=== PATIENT | male | born 1935 | race Caucasian/White ===

== ENCOUNTER 2024-06-14 21:50 | Emergency (ER) | payer MEDICARE ==
[~2024-06-14] VITALS: Ht 175.3 cm; Wt 83.9 kg
[2024-06-14 22:14] VITALS: BP 162/82; PULSE 70; RESP 16; TEMP 97.8; O2SAT 98
--- NOTE | 2024-06-14 22:27 | ERN ---
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 Apparently patient accidentally scraped his right arm against the wall and sustained superficial laceration of the skin. No other injuries. No history of any falls he does take aspirin at bedtime. No LOC. his stated that he has thin skin as he has old and it scraped off quite easily. Temperature 97.8 pulse 70 respirations 16 blood pressure 162/82 with a pulse oximetry of 98% He has a known history of coronary artery disease with stents Allergies: Coded Allergies: ciprofloxacin (Unverified Allergy, Unknown, 06/14/24) Past Medical History Past Medical History: CAD, Other Additional Past Medical Hx: gout Surgical History: Other Surgical History Other: CARDIAC STENTS Family History: Negative RN Note Reviewed/Agreed w/PFSH: Yes Review of System Dictation Constitutional: Negative for fever,chills, and weight loss Eyes: Negative for injury, pain,redness, and discharge ENT: Negative for injury,pain or swelling Cardiovascular: Negative for chest pain, palpitations, and edema Respiratory: Negative for shortness of breath, cough, and wheezing, Abdomen/GI: Negative for abdominal pain, nausea, vomiting, diarrhea, and constipation Back: Negative for injury and pain : Negative for injury, bleeding and discharge MS/Extremity: Positive for injury of the right arm Skin: Negative for rash, and discoloration Neuro: Negative for headache, weakness, numbness, tingling, and seizure Psych: Negative for suicide ideation, homicidal ideation, and hallucinations Initial Vital Sign VS Vital Signs Date Time Temp Pulse Resp B/P (MAP) Pulse Ox O2 Delivery O2 Flow Rate FiO2 06/14/24 21:50 97.9 70 16 162/82 98 Room Air 06/14/24 22:14 0 21 Physical Exam Dictation General: awake, alert, NAD Head/Face: Normocephalic, atraumatic Eyes: PERRL, EOMI, vision at baseline ENT: oral cavity clear, TMs clear, no signs of infection Neck: Trachea midline, supple, no nuchal rigidity Cardiovascular: RRR, normal S1/S2, No MRGs, no JVD Respiratory: CTAB, no respiratory distress, No rales or wheezes Abdomen: Soft, non-tender, non-distended, normal bowel sounds, no guarding or rebound. Skin: Warm, dry, normal turgor, no rash MS/Extremity: Pulses equal, no cyanosis, neurovascular intact, FROM right forearm on the lateral aspect large area of superficial laceration with clean undersurface. Skin is extremely thin and difficult to oppose Neuro: COAx4, GCS 15, strength 5/5, CN 2-12 intact, normal cerebellar exam, normal gait, Psych: Normal behavior, mood, and affect normal Extremities-trace edema without any palpable cords, Homans sign is negative Results (Laboratory/Radiology) Labs Reviewed?: Yes ED Course ED Course Vital Signs Date Time Temp Pulse Resp B/P (MAP) Pulse Ox O2 Delivery O2 Flow Rate FiO2 06/14/24 22:14 97.9 70 16 162/82 98 Room Air* 0 21 06/14/24 21:50 97.9 70 16 162/82 98 Room Air Upon inspection the skin peeled off in an L-shaped very superficially in the subcutaneous tissue does not appear contaminated. Wound was cleansed and dressing was placed . I discussed with patient and spouse that this is not amenable to any suturing or Dermabond as the edges are unable to be apposed Medical Decision Making MDM MDM: Differential diagnosis: Superficial laceration, deep laceration, Rationale: Tests considered and ordered secondary to shared decision making include: Previous outside records reviewed: Old ER visits. Risk of complication and/or morbidity or mortality of patient management: None Medications-Per medication reconciliation Need for hospitalization: Patient does not meet criteria for hospitalization. Need for emergency major/minor surgery: No There are no social concerns with this patient. Prescription drug management Prescriptions will include symptomatic care Patient's prior external medical records from other ER visits were reviewed by me as indicated. Prior testing and results from previous visits were reviewed. Prior tests were taken into account with medical decision making and resource utilization, independent historian/historians were used to obtain complete medical history. I independently interpreted the test that were performed, results were reviewed by me and considered findings on radiology if ordered. Medical management and examination interpretation discussions were had by me with other qualified healthcare professionals as indicated for the patient's care. Problem List Problem List: (1) Abrasion of right forearm DX & DISP Disposition: Discharge Departure Impression: Primary Impression: Abrasion of right forearm Condition: Stable Additional Instructions: Patient and the caregiver have been informed of all the diagnostic tests and the imaging conducted during the today's visit to the emergency room and has verbalized understanding of the results I have personally reviewed and interpreted all diagnostic exams performed here in the ER today as well as the vital signs documented by the nursing staff. The patient is now being discharged to home and should follow up with the primary care physician or the specialist as directed by the ER staff. Referrals: SELF,REFERRAL (PCP) JAKE BLACK MD Jun 14, 2024 22:27
== END 2024-06-14 22:52 | disposition home or self-care (01) ==
LOC: EDH 21:50
DX: S51.811A Laceration without foreign body of right forearm, initial encounter (principal); I25.10 Atherosclerotic heart disease of native coronary artery without angina pectoris; Z88.1 Allergy status to other antibiotic agents; Z95.5 Presence of coronary angioplasty implant and graft; W22.8XXA Striking against or struck by other objects, initial encounter; Y93.89 Activity, other specified; Y92.89 Other specified places as the place of occurrence of the external cause; Y99.8 Other external cause status
CPT/HCPCS: 99281